=== PATIENT | male | born 2000 ===

== ENCOUNTER 2024-05-30 01:30 | Emergency (ER) | payer MEDICAID, SELFPAY ==
[2024-05-30] MEDS ORDERED: NOREPINEPHRINE 8 MG/250 ML-D5W 250 ML ONE (01:31)
[2024-05-30 02:56] LABS: ALT (SGPT) 77 U/L (8-55); AST (SGOT) 133 U/L (5-34); Albumin 2.2 g/dL (3.5-5.0); Alkaline Phosphatase 51 U/L (40-110); Anion Gap 40 mmol/L (10-20); BUN (Urea Nitrogen) 12 mg/dL (8.9-20.6); Bilirubin, Total 0.2 mg/dL (0.2-1.2); Calc. Creatinine Clearance 0 mL/min (70-130); Chloride 113 mmol/L (98-107); Estimated GFR 76; Globulin 1.3 g/dL (2.4-3.5); Protein, Total 3.5 g/dL (6.0-8.3)
[2024-05-30 02:58] LABS: Carbon Dioxide 9 mmol/L (22-29); Glucose 39 mg/dL (70-105); Sodium 157 mmol/L (136-145)
[2024-05-30 03:01] LABS: INR-International Normal Ratio 2.2; PTT 64.8 sec (22.9-36.1); Prothrombin Time 24.4 sec (12.0-14.7)
[2024-05-30 03:02] LABS: %Neutrophils 28.5 % (42.0-75.0); Hematocrit 27.4 % (42.0-52.0); Hemoglobin 8.7 g/dL (14.0-18.0); Mean Corpuscular HGB CONC 31.8 g/dL (32.0-36.0); Mean Corpuscular Volume 94.5 fl (78.0-98.0); Mean Platelet Volume 6.8 fL (7.4-10.4); Platelet Count 126 10x3/uL (130-400); RBC Distribution Width 13.6 % (11.5-14.5); White Blood Cell (WBC) Count 7.5 10x3/uL (4.8-10.8)
[2024-05-30 03:03] LABS: #Eosinophils 0.2 thou/uL (0.0-0.7); #Lymphocytes 4.8 thou/uL (1.20-3.40); #Monocytes 0.3 thou/uL (0.11-0.59); #Neutrophils 2.1 thou/uL (1.40-6.50); %Basophils 0.6 % (0.0-1.0); %Eosinophils 2.8 % (0.0-10.0); %Lymphocytes 64.3 % (21.0-51.0); %Monocytes 3.8 % (0.0-10.0)
[2024-05-30] MEDS ORDERED: Sodium Chloride 0.9% 1,000 ML ONE (04:16)
[2024-05-30] MEDS ORDERED: Calcium Chloride 1 GM/10 ML Abboject SYRINGE ONE (09:00)
[2024-05-30] MEDS ORDERED: EPINEPHrine 1 MG/10 ML Abboject SYRINGE ONE (09:00)
== END 2024-05-30 02:34 | disposition short-term general hospital (02) ==
LOC: NAV ERS 01:30
DX: S31.139A Puncture wound of abdominal wall without foreign body, unspecified quadrant without penetration into peritoneal cavity, initial encounter (principal); I46.9 Cardiac arrest, cause unspecified; X58.XXXA Exposure to other specified factors, initial encounter
CPT/HCPCS: 36556; 71045; 80053; 85025; 85610; 85730; 86850; 86900; 86901; 99291; G0390; J0171; J7030; P9016